=== PATIENT | male | born 1995 | race Caucasian/White ===

== ENCOUNTER 2021-07-01 15:41 | Emergency (ER) | payer BC, SELFPAY ==
[2021-07-01 15:42] VITALS: BP 109/79; PULSE 104; RESP 18; TEMP 36.3; O2SAT 98; BMI 34.2
--- NOTE | 2021-07-01 17:16 | EX.ED.DYSGE1 ---
HPI History of Present Illness Chief Complaint: Flank Pain Informant: patient Onset/Context/Timing Onset: Days (10) Context: Gradual Onset Timing: Continuous Quality: Sharp, stabbing Location: Right flank Worsened by: Movement Relieved by: Rest Narrative Narrative: Patient presents with right flank pain that began approximately 10 days ago. Patient states it has been constant. Patient states he went to an emergency department in [place] and was told he had a kidney stone. Patient states it was found to be in the kidney and not in the ureter. Patient denies any dysuria or hematuria. Patient describes his pain as sharp and stabbing. Patient states it is over the right flank area. Patient states it is worse with movement and better with rest. Patient admits to nausea but denies any vomiting. Patient denies any fevers but admits to some subjective chills. PFSH PFSH Medical History no medical history no medical history Home Medications albuterol sulfate [Ventolin Hfa (SP)] 1 puff INHALATION Q4H PRN PRN 06/30/16 [History Last Taken Unknown] etodolac 300 mg PO TIDCM #20 capsule 06/30/16 [Rx Last Taken Unknown] hydrocodone-acetaminophen 1 tab PO Q6H PRN PRN 3 Days #10 tablet 07/01/21 [Rx Last Taken Unknown] Allergy/AdvReac Type Severity Reaction Status Date / Time No Known Allergies Allergy Verified 07/01/21 15:43 Surgical History no surgical history no surgical history Social History Smoking Status: Former smoker ROS ROS ED Constitutional Constitutional ED: Reports chills; Denies fever(s) Eyes Eyes: Denies blurry vision or change in vision ENT ENT ED: Denies rhinorrhea or sore throat Cardiovascular Cardiovascular: Denies chest pain or palpitations Respiratory/Chest Respiratory/Chest: Denies cough or dyspnea Gastrointestinal Gastrointestinal: Reports nausea; Denies vomiting Genitourinary Genitourinary ED: Denies dysuria or hematuria Musculoskeletal Musculoskeletal: Reports back pain; Denies neck pain Integumentary Denies abscess or rash Neurologic Neurologic: Denies headache(s) or weakness Allergic/Immunologic Allergic/Immunologic ED: Denies mouth swelling or urticaria EXAM Physical Exam Const Vital Signs: 07/01/21 15:42 07/01/21 17:19 Temperature 97.3 F L Temperature Source Temporal Pulse Rate 104 H Respiratory Rate 18 Respiratory Effort Normal Non-Labored Respiratory Pattern Irregular Blood Pressure 109/79 Blood Pressure Mean 89 Pulse Ox 98 Oxygen Delivery Method Room Air Positive well nourished and well developed General Appearance ED: well developed and NAD HEENT Reports moist mucous membranes Neck supple and no JVD Resp normal respiratory effort and clear to auscultation bilaterally Cardio regular rate and regular rhythm GI normal to inspection, nondistended, normoactive bowel sounds Palpation: soft and tender RUQ; Negative for guarding or rebound tenderness present Back/Spine General Back: CVA tenderness right Neuro oriented x3, CN's II-XII intact bilaterally and no sensory deficits noted Sensorium / Orientation: alert Motor Exam: strength 5/5 throughout Psych mental status grossly normal MDM MDM MDM Narrative Medical decision making narrative: Patient was given IV fluids, morphine, Zofran, and Toradol. CT scan of the abdomen pelvis from [place] was reviewed. There is a right renal calculus but there is no ureteral calculus. CBC was within normal limits. Comprehensive metabolic profile was within normal limits. Lipase was normal. Urinalysis does not show any evidence of urinary tract infection or hematuria. Patient states that pain was improved but is starting to return. Patient was given a dose of [place] here. Patient was given a prescription for [place]. Patient was instructed to follow-up with his primary care physician in 3 to 5 days. Patient was also given a referral for urology. Patient understood and was agreeable with the plan. All questions were answered. Lab Data Attestation: I reviewed the patient's lab results. Labs: Laboratory Results - last 24 hr 07/01/21 07/01/21 07/01/21 17:20 17:20 18:40 WBC 6.6 RBC 5.61 Hgb 16.9 H Hct 49.8 MCV 88.8 MCH 30.1 MCHC 33.9 RDW Std Deviation 38.3 RDW Coeff of Roxy 11.9 Plt Count 206 MPV 12.6 H Immature Gran % (Auto) 0.500 Neut % (Auto) 63.8 Lymph % (Auto) 29.2 [place] % (Auto) 5.3 Eos % (Auto) 0.9 Baso % (Auto) 0.3 Absolute Neuts (auto) 4.2 Absolute Lymphs (auto) 1.93 Nucleated RBC % 0 Sodium 139 Potassium 3.9 Chloride 106 Carbon Dioxide 29.0 Anion Gap 4 L BUN 10 Creatinine 0.88 Estim Creat Clear Calc 146.28 Est GFR (MDRD) Af Amer 136 Est GFR (MDRD) Non-Af 112 BUN/Creatinine Ratio 11.3 Glucose 100 Calcium 9.3 Total Bilirubin 0.70 AST 17 ALT 32 Alkaline Phosphatase 63 Total Protein 7.6 Albumin 4.1 Globulin 3.5 Albumin/Globulin Ratio 1.2 Lipase 74 Urine Color Yellow Urine Clarity Cloudy Urine pH 7.0 Ur Specific [place] 1.010 Urine Protein 15 H Urine Glucose (UA) Normal Urine Ketones Negative Urine Occult Blood Negative Urine Nitrite Negative Urine Bilirubin Negative Urine Urobilinogen 1 H Ur Leukocyte Esterase Negative Urine RBC 0 SEEN Urine WBC 0-5 SEEN Ur Squamous Epith Cells 0-5 SEEN Urine Bacteria RARE Urine Mucus 1+ Discharge Plan Triage Chief Complaint: Flank Pain ED Provider: Isaias Renteria Dx/Rx/DC Orders Clinical Impression: Acute right flank pain, Calculus of right kidney Instructions: ED Flank Pain, Uncertain Cause, ED Kidney Stone Undescended No ... Prescriptions: New hydrocodone-acetaminophen [hydrocodone-acetaminophen] 1 TABLET tablet 1 tab PO Q6H PRN PRN (Reason: Pain) 3 Days Qty: 10 RF: 0 No Action albuterol sulfate [Ventolin HFA] 1 INHALER inhaler 1 puff inhalation Q4H PRN PRN (Reason: Asthma) RF: 0 etodolac 300 MG capsule 300 mg PO TIDCM Qty: 20 RF: 0 Primary Care Provider: Bernadette Pearce Referrals: Fletcher Torres MD [STAFF PHYSICIAN] - 3-5 Days Bernadette Pearce DO [Primary Care Provider] - 3-5 Days Disposition Disposition: Home, Self Care
[2021-07-01] MEDS: Ketorolac 30 MG/ML Syringe IV (17:31)
[2021-07-01] MEDS: 0.9% Normal Saline 1,000 ML 1000 ML IV (17:31)
[2021-07-01] MEDS: Ondansetron 4 MG/2 ML Vial IV (17:31)
[2021-07-01 17:46] LABS: Absolute Lymphocyte Count 1.93 X10^3/uL (0.83-4.51); Absolute Neutrophil Count 4.2 X10^3/uL (2.0-7.7); Basophil# 0.02 X10^3/uL; Basophil% 0.3 % (0-1); Eosinophil# 0.06 X10^3/uL; Eosinophils% 0.9 % (0-5); Hematocrit 49.8 % (40-54); Hemoglobin 16.9 g/dL (13.0-16.5); Lymphocyte # 1.93 X10^3/ul (0.83-4.51); Lymphocyte % 29.2 % (19-41); Mean Corp Hgb Conc 33.9 g/dL (32-36); Mean Corpuscular Hgb 30.1 pg (27.0-32.0); Mean Corpuscular Volume 88.8 fL (80-94); Mean Platelet Vol. 12.6 fl (6.2-12.0); Monocyte# 0.35 X10^3/uL; Monocyte% 5.3 % (0-10); NRBC Flagged by Analyzer 0 % (0-5); Neutrophil # 4.21 X10^3/uL (2.7-7.7); Neutrophil % 63.8 % (47-70); Platelet Count 206 K/mm3 (150-450); RBC Distribution Width CV 11.9 % (11.6-14.6); RBC Distribution Width SD 38.3 fl (35.1-43.9); Red Blood Count 5.61 M/mm3 (4.6-6.2); White Blood Count 6.6 K/mm3 (4.4-11.0)
[2021-07-01 18:23] LABS: ALB/GLOB Ratio 1.2 RATIO (0.9-2.4); AST(SGOT) 17 U/L (15-37); Alanine Aminotransfer ALT/SGPT 32 U/L (16-61); Albumin, Serum 4.1 g/dL (3.2-5.0); Alkaline Phosphatase 63 U/L (45-117); Anion Gap 4 (5-15); BUN 10 mg/dL (7-18); BUN/Creat Ratio 11.3 RATIO (10-20); Calcium,Total 9.3 mg/dL (8.5-10.1); Chloride 106 mmol/L (98-107); Creatinine, Serum 0.88 mg/dL (0.70-1.30); EST Glomerular Filtration Rate 112 mL/min (>60); Est Glom Filt Rate - Afr Amer 136 mL/min (>60); Estimated Creatinine Clearance 146.28 ml/min; Globulin 3.5 g/dL (2.2-4.2); Glucose 100 mg/dL (74-106); Lipase 74 U/L (73-393); Potassium 3.9 mmol/L (3.5-5.1); Protein, Total 7.6 g/dL (6.4-8.2); Sodium Level 139 mmol/L (136-145)
[2021-07-01 18:56] LABS: Red Blood Cells-Urine 0 SEEN /hpf (0-5)
[2021-07-01 19:10] LABS: Color, Urine Yellow (Yellow); Glucose, Dipstick Normal (Normal); Ketone-Dipstick Negative (Negative); Leukocyte Esterase-Dipstick Negative /ul (Negative); Nitrite-Dipstick Negative (Negative); Occult Blood-Urine Negative /ul (Negative); Protein-Dipstick 15 mg/dl (Negative); Urine Bilirubin Dipstick Negative (Negative); Urine Clarity Cloudy (Clear); Urine Urobilinogen 1 mg/dl (Normal)
[2021-07-01 19:33] LABS: Bacteria RARE /hpf (None Seen); Squamous Epithelial Cells - UA 0-5 SEEN /hpf (0-5)
[2021-07-01 19:34] LABS: Mucous, Urine 1+ /hpf (<or=2+); White Blood Cells 0-5 SEEN /hpf (0-5)
[2021-07-01] MEDS: HYDROcodone Bitartrate/Apap 5/325 Tablet PO (19:36)
[2021-07-01 20:04] VITALS: BP 113/74; PULSE 74; RESP 15; RESP 17; O2SAT 99
== END 2021-07-01 20:09 | disposition home or self-care (01) ==
PROVIDERS: Emergency Provider Emergency Medicine; PCP Internal Medicine; Visit Provider Emergency Medicine
DX: N20.0 Calculus of kidney (principal); R10.9 Unspecified abdominal pain; Z87.891 Personal history of nicotine dependence
CPT/HCPCS: 80053; 81001; 83690; 85025; 96361; 96374; 96375; 99284; J7030; A4216; J2405

== ENCOUNTER 2022-05-28 20:03 | Emergency (ER) | payer BC, SELFPAY ==
[2022-05-28 20:04] VITALS: BP 130/63; PULSE 98; RESP 18; TEMP 36.4; O2SAT 98; BMI 26.6
--- NOTE | 2022-05-28 20:08 | RAD_ITS ---
EXAM: XR RIGHT SHOULDER COMPLETE, 2 OR MORE VIEWS CLINICAL INDICATION: PAIN TECHNIQUE: Two or more views of the right shoulder. This report was created using Mobile Complete report generation technology. COMPARISON: None. FINDINGS: BONES/JOINTS: Unremarkable. No acute fracture. No subluxation. Normal alignment. Preservation of the joint space. No sclerotic or destructive changes observed. SOFT TISSUES: Unremarkable. No soft tissue swelling or gas. No radiopaque foreign body. RAD/Shoulder min 2 Views IMPRESSION: Negative right shoulder x-rays. Electronically Signed: Sarabjit Álvarez MD at 20:36 EDT ,
--- NOTE | 2022-05-28 21:25 | EDS_ITS ---
HPI History of Present Illness Chief Complaint: Upper Extremity Injury Informant: patient Narrative Narrative: Patient states he has been having some shoulder pain for about a week and a half. He is not 100% sure when it started. He is not sure if he hurt this at home or at work. If he is just sitting quietly does not bother him. But if he is lifting on things pulling things or working overhead it bothers him. He has 1 point that is most of his pain. He denies any cough or trouble breathing. He denies any acute trauma. No history of surgery in that area. No numbness tingling or weakness. PFSH PFSH Home Medications albuterol sulfate 90 mcg/actuation aerosol inhaler (Ventolin HFA) 1 puff inhalation Q4H PRN PRN Asthma 06/30/16 [History Last Taken Unknown] etodolac 300 mg capsule 300 mg PO TIDCM ##20 06/30/16 [Rx Last Taken Unknown] hydrocodone-acetaminophen 5-325mg 5mg-325mg 1 tab PO Q6H PRN PRN Pain 3 days #10 TABLETS 07/01/21 [Rx Last Taken Unknown] naproxen 500 mg tablet 500 mg PO BID #20 tabs 05/28/22 [Rx Last Taken Unknown] Allergy/AdvReac Type Severity Reaction Status Date / Time No Known Allergies Allergy Verified 05/28/22 20:07 Social History Smoking Status: Former smoker ROS ROS ED Constitutional Constitutional ED: Denies chills, fever(s) or subjective ENT ENT ED: Denies rhinorrhea Cardiovascular Cardiovascular: Denies chest pain, palpitations or racing heartbeat Respiratory/Chest Respiratory/Chest: Denies cough or dyspnea Gastrointestinal Gastrointestinal: Denies abdominal pain, nausea or vomiting Musculoskeletal Musculoskeletal: Reports myalgias and other Details: See history of present illness ; Denies back pain or neck pain Integumentary Denies Abrasions or rash Neurologic Neurologic: Denies paresthesias or weakness Hematologic/Lymphatic Hematologic/Lymphatic: Denies lymphadenopathy Allergic/Immunologic Allergic/Immunologic ED: Denies urticaria EXAM Physical Exam Narrative Exam Narrative: Patient is actually resting in bed when I walk in. He easily aroused with voice. No acute distress. HEENT shows no trauma. Mucous membranes are moist. Neck is supple and he has good free range of motion without pain and no pain wit h palpation. Lungs are clear bilaterally. He takes good deep breaths without any pain or discomfort. Saturations are normal at 98% on room air. Heart is regular. Rate about 90. No murmur gallop or rub. Peripheral pulses x4 are normal. Abdomen soft nontender Extremities: Patient has an area really at the tip of his scapula and just at the medial edge that is tender. But there is no skin changes swelling erythema warmth or any visible finding. There is no abscess in the axilla. This is also reproduced with any range of motion. This seems musculoskeletal. Const Vital Signs: 05/28/22 20:04 Temperature 97.6 F L Temperature Source Temporal Pulse Rate 98 Respiratory Rate 18 Blood Pressure 130/63 H Blood Pressure Mean 85 Pulse Ox 98 Oxygen Delivery Method Room Air MDM MDM MDM Narrative Medical decision making narrative: My independent interpretation of the patient's 4 view x-ray of the right shoulder shows no sign of acute fracture dislocation or bony abnormality. Final reading by radiology is negative right shoulder x-rays. Patient will be treated with nonsteroidals rest and ice. He should follow-up with primary physician. Radiography Diagnostic Testing: Clinical Impression(s) from Imaging Studies Shoulder X-Ray 05/28/22 20:08 IMPRESSION: Negative right shoulder x-rays. Electronically Signed: Sarabjit Álvarez MD at 20:36 EDT , Discharge Plan Triage Chief Complaint: Upper Extremity Injury ED Provider: Ulices Castillo Dx/Rx/DC Orders Clinical Impression: Injury of right scapular region Instructions: ED Shoulder Pain, Uncertain Cause Prescriptions: New naproxen 500 mg tablet 500 mg PO BID Qty: 20 0RF No Action albuterol sulfate [Ventolin HFA] 1 INHALER inhaler 1 puff inhalation Q4H PRN PRN (Reason: Asthma) etodolac 300 MG capsule 300 mg PO TIDCM Qty: 20 0RF Rx Instructions: with food hydrocodone-acetaminophen [hydrocodone-acetaminophen] 1 TABLET tablet 1 tab PO Q6H PRN PRN (Reason: Pain) 3 Days Qty: 10 0RF Primary Care Provider: Bernadette Pearce Referrals: Bernadette Pearce, [Primary Care Provider] - 3-5 Days Disposition Disposition: Home, Self Care
== END 2022-05-28 21:45 | disposition home or self-care (01) ==
PROVIDERS: Emergency Provider Emergency Medicine; PCP Internal Medicine; Visit Provider Emergency Medicine
DX: S49.91XA Unspecified injury of right shoulder and upper arm, initial encounter (principal); Z87.891 Personal history of nicotine dependence; X58.XXXA Exposure to other specified factors, initial encounter
CPT/HCPCS: 73030; 99282

== ENCOUNTER 2023-02-02 12:00 | Emergency (ER) | payer BC, SELFPAY ==
[2023-02-02 12:01] VITALS: BP 164/97; PULSE 88; RESP 16; TEMP 36.2; O2SAT 100; BMI 25.9
--- NOTE | 2023-02-02 12:13 | EX.ED.DYSGE1 ---
HPI <SANDRA Briceno - Last Filed: 02/02/23 13:16> History of Present Illness Chief Complaint: Numb/Ting Narrative Narrative: Patient is a 27-year-old male with no significant ankle history presents to the emergency department with 5 days of right-sided arm tingling, numbness down the back of the arm. Heaviness to the right arm, pain down the right leg and some bruising to bilateral thighs. Patient is a youssef. Patient states he had an appointment with his primary care doctor today regarding the symptoms however the primary care doctor was ill so they referred him to the emergency department. Patient denies any injury. Patient denies any history of any neurological disease. Patient does have some pain to the right side of his neck. Denies any injury PFSH <SANDRA Briceno - Last Filed: 02/02/23 13:16> PFSH Medical History no medical history Home Medications albuterol sulfate 90 mcg/actuation aerosol inhaler (Ventolin HFA) 1 puff inhalation Q4H PRN PRN Asthma 06/30/16 [History Last Taken Unknown] etodolac 300 mg capsule 300 mg PO TIDCM ##20 06/30/16 [Rx Last Taken Unknown] hydrocodone-acetaminophen 5-325mg 5mg-325mg 1 tab PO Q6H PRN PRN Pain 3 days #10 TABLETS 07/01/21 [Rx Last Taken Unknown] naproxen 500 mg tablet 500 mg PO BID #20 tabs 05/28/22 [Rx Last Taken Unknown] naproxen 500 mg tablet,delayed release 500 mg PO BID #20 tabs 02/02/23 [Rx Last Taken Unknown] Allergy/AdvReac Type Severity Reaction Status Date / Time No Known Allergies Allergy Verified 02/02/23 12:03 Social History Smoking Status: Current every day smoker tobacco type: e-cigarettes ROS <SANDRA Briceno - Last Filed: 02/02/23 13:16> ROS ED ROS Narrative Constitutional: Negative for fever, chills, weight loss, weakness Eyes: Negative for vision loss, vision change, double vision ENT: Negative for any sore throat, ear pain, congestion Cardiovascular: Negative for any chest pain, tightness, palpitations Respiratory: Negative for any cough, sputum production, hemoptysis, dyspnea, dyspnea on exertion, orthopnea Gastrointestinal: Negative for any abdominal pain, nausea, vomiting, diarrhea, constipation, blood in stool, blood in vomit : Negative for any urinary frequency, dysuria, retention, blood in urine Muscle skeletal: Negative for any myalgias, arthralgias, neck pain, back pain. Positive for pain, numbness down the back of the right arm. Pain to the right leg. Neurological: Negative for any headache, syncope, paresthesias, dizziness Skin: Negative for any rashes, lumps, itching, abrasions, lacerations. Positive bruising down bilateral thighs Psychiatric: Negative for any depression, anxiety, stress, suicidal ideation, homicidal ideation Hematologic: Negative for any easy bruising, excessive bruising, easy bleeding Allergies: Negative for any eczema, hives, rash EXAM <SANDRA Briceno - Last Filed: 02/02/23 13:16> Physical Exam Narrative Exam Narrative: Vital signs reviewed. HEET: Head normocephalic atraumatic, TMs clear bilaterally. Posterior pharynx is clear, moist mucous membranes. Nares clear bilaterally. Pupils are equal round reactive to light. Neck: Supple with no lymphadenopathy or tenderness. No signs of meningismus. Patient does have some pain to the medial trapezius muscle that radiates down the right arm. Cardiac: Regular rate and rhythm no murmurs gallops or rubs, equal peripheral pulses bilaterally. Respiratory: Lungs clear to auscultation bilaterally. No chest tenderness. Abdomen: Soft, nontender, nondistended. No abdominal bruit or pulsatile masses. No hepatosplenomegaly Extremities: No peripheral edema, no signs of gross trauma or deformity. Active full range of motion of all extremities. Neuro: Cranial nerves II through XII intact, no focal neurological deficits. NIH score 0. Patient does have 5 out of 5 strength to upper and lower extremities. +2 pedal pulse. +2 radial pulse. Skin: Clean dry and intact with no rash, purpura, petechiae, vesicles or pustules. I did not appreciate any bruising to bilateral thighs. Backs/flank: No CVA tenderness, no midline spinal tenderness, no deformity. Psych: Normal mood and affect. No SI, HI or acute psychosis. Const Vital Signs: 02/02/23 12:01 Temperature 97.2 F L Temperature Source Temporal Pulse Rate 88 Respiratory Rate 16 Blood Pressure 164/97 H Blood Pressure Mean 119 Pulse Ox 100 Oxygen Delivery Method Room Air <Dr. Isaias Renteria DO - Last Filed: 02/02/23 13:14> Physical Exam Const Vital Signs: 02/02/23 12:01 Temperature 97.2 F L Temperature Source Temporal Pulse Rate 88 Respiratory Rate 16 Blood Pressure 164/97 H Blood Pressure Mean 119 Pulse Ox 100 Oxygen Delivery Method Room Air MDM <SANDRA Briceno - Last Filed: 02/02/23 13:16> [facility] Lab Data Labs: Laboratory Results - last 24 hr 02/02/23 12:50 WBC 5.1 RBC 5.55 Hgb 16.3 Hct 50.2 MCV 90.5 MCH 29.4 MCHC 32.5 RDW Std Deviation 39.0 RDW Coeff of Roxy 11.7 Plt Count 183 MPV 11.6 Immature Gran % (Auto) 0.200 Neut % (Auto) 49.1 Lymph % (Auto) 35.7 [place] % (Auto) 10.7 H Eos % (Auto) 3.3 Baso % (Auto) 1.0 Absolute Neuts (auto) 2.5 Absolute Lymphs (auto) 1.83 Nucleated RBC % 0 Sodium 138 Potassium 3.9 Chloride 108 H Carbon Dioxide 28.0 Anion Gap 2 L BUN 19 H Creatinine 0.82 Estim Creat Clear Calc 155.63 Est GFR (MDRD) Af Amer 145 Est GFR (MDRD) Non-Af 120 BUN/Creatinine Ratio 23.0 H Glucose 113 H Calcium 9.3 Treatment and Re-Evaluation :: Patient appears generally well, patient appears nontoxic, vital signs are stable. Presenting to the emergency department with multiple complaints. Complaints of right arm heaviness, numbness down the back of the right arm, right leg pain, bilateral bruising. Differential diagnose includes cervical radiculopathy, lumbar radiculopathy, thrombocytopenia, electrolyte abnormality. Patient will receive a CBC, BMP. He will be given an IM injection of Toradol. Patient be reevaluated Patient CBC was unremarkable, platelets 183. Patient's chemistries were unremarkable. At this time, do believe patient is suffering from muscle skeletal injury. Patient be given naproxen for home. There is no evidence of any significant acute neurologic abnormality. He will continue following up outpatient. Patient is happy with the plan of care, will receive a work note for today. Stable for discharge. <Dr. Isaias Renteria, DO - Last Filed: 02/02/23 13:14> [facility] Narrative Medical decision making narrative: I have personally performed a face to face assessment of the patient and have reviewed the ROXI Note. I performed a substantive portion of the visit including all aspects of the following. My dillon findings include: History: Patient presents with tingling into his right arm that has been constant for the past 5 days. Patient states it is gradually gotten worse. Patient admits to some pain over his right upper chest. Patient describes it as constant aching. Patient states it is sharp at times. Patient states nothing makes it worse and nothing makes it better. Patient denies any weakness in his arm. Patient also admits to some aching and bruising in his bilateral thighs. Patient admits to some occasional shortness of breath. Exam: Vital signs are stable. Patient is afebrile. Patient is in no acute distress. Oral mucosa is pink and moist. Neck is supple. Trachea is midline. No JVD. Heart was regular rate and rhythm. Lungs are clear and equal bilateral. Abdomen is soft. Bowel sounds are normal. There is no tenderness. Cranial nerves II through XII are intact. There are no focal motor or sensory deficits noted. There is tenderness and spasm of the right parascapular muscles. There is no edema or ecchymosis noted. There is no tenderness over the anterior chest. Range of motion of the right shoulder was somewhat limited in all motions secondary to pain. Radial pulses are equal bilaterally. Medical Decision Making: Differential diagnosis includes anemia, electrolyte abnormality, radiculopathy, and paresthesias. CBC will be obtained to assess for leukocytosis and anemia. Basic metabolic profile will be obtained to assess for electrolyte abnormality and renal function. CBC was reviewed and was within normal limits. Basic metabolic profile was reviewed and was essentially within normal limits. Patient was given a dose of Toradol here. Patient is feeling better on reevaluation. Patient was advised of his findings. Patient was instructed to follow-up with his primary care physician in 5 to 7 days. Patient understood and was agreeable with the plan. All questions were answered. Lab Data Attestation: I reviewed the patient's lab results. Labs: Laboratory Results - last 24 hr 02/02/23 12:50 WBC 5.1 RBC 5.55 Hgb 16.3 Hct 50.2 MCV 90.5 MCH 29.4 MCHC 32.5 RDW Std Deviation 39.0 RDW Coeff of Roxy 11.7 Plt Count 183 MPV 11.6 Immature Gran % (Auto) 0.200 Neut % (Auto) 49.1 Lymph % (Auto) 35.7 [place] % (Auto) 10.7 H Eos % (Auto) 3.3 Baso % (Auto) 1.0 Absolute Neuts (auto) 2.5 Absolute Lymphs (auto) 1.83 Nucleated RBC % 0 Sodium 138 Potassium 3.9 Chloride 108 H Carbon Dioxide 28.0 Anion Gap 2 L BUN 19 H Creatinine 0.82 Estim Creat Clear Calc 155.63 Est GFR (MDRD) Af Amer 145 Est GFR (MDRD) Non-Af 120 BUN/Creatinine Ratio 23.0 H Glucose 113 H Calcium 9.3 Discharge Plan Triage Chief Complaint: Numb/Ting ED Midlevel Provider: Simon Fuentes ED Provider: Isaias Renteria Dx/Rx/DC Orders Clinical Impression: Cervical radiculopathy Instructions: Cervical Radiculopathy, ED Back and Neck Pain, General Prescriptions: New naproxen 500 mg tablet,delayed release (DR/EC) 500 mg PO BID Qty: 20 0RF No Action albuterol sulfate [Ventolin HFA] 1 INHALER inhaler 1 puff inhalation Q4H PRN PRN (Reason: Asthma) etodolac 300 MG capsule 300 mg PO TIDCM Qty: 20 0RF Rx Instructions: with food hydrocodone-acetaminophen [hydrocodone-acetaminophen] 1 TABLET tablet 1 tab PO Q6H PRN PRN (Reason: Pain) 3 Days Qty: 10 0RF naproxen 500 mg tablet 500 mg PO BID Qty: 20 0RF Stand Alone Forms: ED Work / School Excuse Primary Care Provider: Bernadette Pearce Referrals: Bernadette Pearce DO [Primary Care Provider] - Activity Restrictions/Additional Instructions: Please follow-up as needed. Return here for any worsening symptoms. He did have normal blood work done today. Disposition Disposition: Home, Self Care
[2023-02-02] MEDS: Ketorolac 30 MG/ML Syringe IM (12:51)
[2023-02-02 12:53] LABS: Absolute Lymphocyte Count 1.83 X10^3/uL (0.83-4.51); Absolute Neutrophil Count 2.5 X10^3/uL (2.0-7.7); Basophil# 0.05 X10^3/uL; Eosinophil# 0.17 X10^3/uL; Eosinophils% 3.3 % (0-5); Hematocrit 50.2 % (40-54); Hemoglobin 16.3 g/dL (13.0-16.5); Lymphocyte # 1.83 X10^3/ul (0.83-4.51); Lymphocyte % 35.7 % (19-41); Mean Corp Hgb Conc 32.5 g/dL (32-36); Mean Corpuscular Hgb 29.4 pg (27.0-32.0); Mean Corpuscular Volume 90.5 fL (80-94); Mean Platelet Vol. 11.6 fl (6.2-12.0); Monocyte# 0.55 X10^3/uL; Monocyte% 10.7 % (0-10); NRBC Flagged by Analyzer 0 % (0-5); Neutrophil # 2.52 X10^3/uL (2.7-7.7); Neutrophil % 49.1 % (47-70); Platelet Count 183 K/mm3 (150-450); RBC Distribution Width CV 11.7 % (11.6-14.6); Red Blood Count 5.55 M/mm3 (4.6-6.2); White Blood Count 5.1 K/mm3 (4.4-11.0)
[2023-02-02 13:05] LABS: Anion Gap 2 (5-15); BUN 19 mg/dL (7-18); Calcium,Total 9.3 mg/dL (8.5-10.1); Chloride 108 mmol/L (98-107); Creatinine, Serum 0.82 mg/dL (0.70-1.30); EST Glomerular Filtration Rate 120 mL/min (>60); Est Glom Filt Rate - Afr Amer 145 mL/min (>60); Estimated Creatinine Clearance 155.63 ml/min; Glucose 113 mg/dL (74-106); Potassium 3.9 mmol/L (3.5-5.1); Sodium Level 138 mmol/L (136-145)
== END 2023-02-02 13:23 | disposition home or self-care (01) ==
PROVIDERS: Nurse Practitioner; Emergency Provider Emergency Medicine; PCP Internal Medicine; Visit Provider Emergency Medicine
DX: M54.12 Radiculopathy, cervical region (principal); F17.290 Nicotine dependence, other tobacco product, uncomplicated
CPT/HCPCS: 80048; 85025; 96372; 99283

== ENCOUNTER 2024-11-29 13:49 | Emergency (ER) | payer SELFPAY ==
[2024-11-29 13:51] VITALS: BP 128/88; PULSE 88; RESP 22; TEMP 36.2; O2SAT 97; BMI 23.9
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
[2024-11-29] MEDS: HYDROcodone Bitartrate/Apap 5/325 Tablet PO (14:21)
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
[2024-11-29 15:44] VITALS: BP 135/90; PULSE 66; RESP 18; TEMP 36.8; O2SAT 98
== END 2024-11-29 15:45 | disposition home or self-care (01) ==
PROVIDERS: Emergency Provider Emergency Medicine; PCP Internal Medicine; Visit Provider Emergency Medicine
DX: S16.1XXA Strain of muscle, fascia and tendon at neck level, initial encounter (principal); S20.211A Contusion of right front wall of thorax, initial encounter; S90.812A Abrasion, left foot, initial encounter; S91.312A Laceration without foreign body, left foot, initial encounter; S93.602A Unspecified sprain of left foot, initial encounter; Y04.8XXA Assault by other bodily force, initial encounter; F17.290 Nicotine dependence, other tobacco product, uncomplicated
CPT/HCPCS: 71101; 72040; 73630; 99282